=== PATIENT | female | born 1970 | race Caucasian/White ===

== ENCOUNTER 2019-09-01 17:47 | Emergency (ER) | payer OTHER ==
[~2019-09-01] VITALS: Ht 152.4 cm; Wt 76.2 kg
[2019-09-01 18:01] VITALS: BP 137/95
[2019-09-01 20:29] VITALS: BP 130/84
== END 2019-09-01 20:29 | disposition home or self-care (01) ==
LOC: EEVIPCON 17:47 → MED 17:47
DX: J20.9 Acute bronchitis, unspecified (principal); E11.9 Type 2 diabetes mellitus without complications; I10 Essential (primary) hypertension; Z98.890 Other specified postprocedural states
CPT/HCPCS: 71045; 82948; 99283

== ENCOUNTER 2019-09-04 14:08 | Emergency (ER) | payer OTHER ==
[~2019-09-04] VITALS: Ht 152.4 cm; Wt 74.4 kg
[2019-09-04 14:18] VITALS: BP 107/66
--- NOTE | 2019-09-04 15:01 | NUR ---
48 YO female c/o cough n/v/d x 4 days. denies fever. was seen at [facility] / and dx with bronchitis hx: htn/dm
[2019-09-04] MEDS: ONDANSETRON 4 MG ODT PO ONE (15:36)
[2019-09-04 15:50] VITALS: BP 107/66
--- NOTE | 2019-09-04 15:50 | NUR ---
Patient discharged with v/s stable. Written and verbal after care instructions given and explained. Patient alert, oriented and verbalized understanding of instructions. Ambulatory with steady gait. All questions addressed prior to discharge. ID band removed. Patient advised to follow up with PMD. Rx of TESSOLON PERLS, ZITHRO, ALBUTEROL AND ZOFRAN given. Patient educated on indication of medication including possible reaction and side effects. Opportunity to ask questions provided and answered.
== END 2019-09-04 15:50 | disposition home or self-care (01) ==
LOC: MED 14:08
DX: J20.9 Acute bronchitis, unspecified (principal); M54.6 Pain in thoracic spine; E11.9 Type 2 diabetes mellitus without complications; I10 Essential (primary) hypertension; Z98.890 Other specified postprocedural states
CPT/HCPCS: 99283; Q0162

== ENCOUNTER 2021-04-17 14:02 | Emergency (ER) | payer OTHER ==
[~2021-04-17] VITALS: Ht 152.4 cm; Wt 73.9 kg
[2021-04-17 14:18] VITALS: BP 122/74
--- NOTE | 2021-04-17 14:28 | NUR ---
PATIENT AMBULATED WITH STEADY GAIT TO BED 6
--- NOTE | 2021-04-17 14:45 | NUR ---
50 y/o F BIB daughter c/o low abdominal pain x 3 months worsening last night at 2200. Patient A&Ox4, ambulatory, reports seen by PCP and Ultrasound stating "issues with her ovaries." Pt reports LLQ pain, 10/10, throbbing/constant, radiating to LUQ. Patient states Naproxyn 500mg without relief. Pt states increased pain since last night. Denies N/V/D, Chest pain, fever, chills. Also states hematuria and dysuria. Last BM: today/normal. Bed locked in lowest position, side rails x 1. PMH: HTN, DM Meds: metformin, vitamin D3, methocarbamol, lisinopril, fuoxetine NKDA
[2021-04-17] MEDS ORDERED: KETOROLAC 30 MG/ML VIAL IM ONE (15:05)
--- NOTE | 2021-04-17 15:11 | NUR ---
Daughter at bedside
[2021-04-17 15:40] LABS: BILIRUBIN,URINE NEGATIVE (NEGATIVE); BLOOD, URINE TRACE-I (NEGATIVE); COLOR,URINE YELLOW (YELLOW); LEUKOCYTE ESTERASE ,URINE TRACE (NEGATIVE); NITRITE, URINE NEGATIVE (NEGATIVE); UGLUCOSE NEGATIVE (NEGATIVE)
[2021-04-17 15:43] LABS: APPEARANCE,URINE HAZY (CLEAR)
[2021-04-17 15:53] LABS: RBC,URINE 0-5 /HPF (0-5); WBC,URINE 0-5 /HPF (0-5)
[2021-04-17 16:01] LABS: BASOPHILS % (AUTO) 0.3 % (0.0-2.0); EOSINOPHILS # (AUTO) 0.1 K/uL (0-0.4); EOSINOPHILS % (AUTO) 1.8 % (0.0-4.0); HEMATOCRIT 37.2 % (36-48); HEMOGLOBIN 12.5 g/dL (12.0-16.0); LYMPHOCYTES # (AUTO) 2.2 K/uL (2.5-16.5); LYMPHOCYTES % (AUTO) 34.2 % (20.5-51.1); MEAN CORPUSCULAR HEMOGLOBIN 30 pg (27-31); MEAN CORPUSCULAR HGB CONC 34 g/dL (33-37); MEAN CORPUSCULAR VOLUME 88.4 fL (80-94); MONOCYTES # (AUTO) 0.6 K/uL (0.8-1.0); MONOCYTES % (AUTO) 8.7 % (1.7-9.3); NEUTROPHILS # (AUTO) 3.6 K/uL (1.8-7.7); PLATELET COUNT (AUTO) 303 K/uL (140-450); RED CELL DISTRIBUTION WIDTH 13.9 % (11.6-13.7); WHITE BLOOD COUNT (AUTO) 6.5 K/uL (4.8-10.8)
[2021-04-17 16:15] LABS: ANION GAP 12.5 (8-16); CARBON DIOXIDE 29.4 mmol/L (21-32); CREATININE 0.7 mg/dL (0.6-1.3); POTASSIUM 3.9 mmol/L (3.5-5.1)
[2021-04-17] MEDS ORDERED: NAPR-54 PO (16:39)
[2021-04-17] MEDS ORDERED: ACET-10509 PO (16:39)
[2021-04-17] MEDS ORDERED: ONDA-188 SL (16:39)
[2021-04-17] MEDS ORDERED: TAMS0.4C96 PO (16:39)
[2021-04-17 16:50] VITALS: BP 138/77
--- NOTE | 2021-04-17 16:54 | NUR ---
Patient discharged with v/s stable. Written and verbal after care instructions given and explained. Patient alert, oriented and verbalized understanding of instructions. Ambulatory with steady gait. All questions addressed prior to discharge. ID band removed. Patient advised to follow up with PMD. Rx of Naprosyn, Zofran ODT, Flomax, Tylenol Extra Strength given. Patient educated on indication of medication including possible reaction and side effects. Opportunity to ask questions provided and answered.
== END 2021-04-17 16:54 | disposition home or self-care (01) ==
LOC: MED 14:02
DX: N20.0 Calculus of kidney (principal); N28.89 Other specified disorders of kidney and ureter
CPT/HCPCS: 36415; 74176; 80048; 81001; 85025; 96372; 99284; J1885